=== PATIENT | female | born 1960 | race Two or more races ===

== ENCOUNTER 2024-10-18 15:47 | Emergency (ER) | payer OTHER ==
[~2024-10-18] VITALS: Ht 157.5 cm; Wt 79.8 kg
[2024-10-18] MEDS ORDERED: TOPROL XL50 M1 (16:44)
[2024-10-18] MEDS ORDERED: ZESTRIL2.5 MG (16:45)
[2024-10-18] MEDS ORDERED: KETOROLAC TROMETHAMINE 30 MG VIAL IM STA (17:34)
[2024-10-18] MEDS ORDERED: CETIRIZINE HCL 5 MG/5 ML ML PO STA (17:35)
[2024-10-18] MEDS ORDERED: CETIRIZINE HCL 5MG/5ML BLIST.PACK PO ONE (17:38)
[2024-10-18 18:01] LABS: BASO % 0.3 % (0.1-1.2); EOS # 0.06 (0.04-0.54); EOS % 0.7 % (0.7-7.0); HEMATOCRIT 42.1 % (34.1-44.9); HEMOGLOBIN 13.9 g/dL (11.2-15.7); LYMPH % 31.5 % (19.3-53.1); MEAN CORPUSCULAR HEMOGLOBIN 28.7 pg (25.6-32.2); MONO # 0.71 (0.24-0.82); NEUT # 5.27 (1.56-6.13); NEUT % 59.4 % (34.0-71.1); PLATELET COUNT 192 K/uL (163-369); RED BLOOD COUNT 4.85 M/uL (3.93-5.22); RED CELL DISTRIBUTION WIDTH 14.6 % (11.6-14.4)
[2024-10-18 18:16] LABS: INFLUENZA A AG NEGATIVE (NEGATIVE); INFLUENZA B AG NEGATIVE (NEGATIVE)
[2024-10-18 18:30] LABS: COVID-19 AG POSITIVE (NEGATIVE)
[2024-10-18 18:32] LABS: ALBUMIN 3.8 gm/dL (3.4-5.0); BILIRUBIN TOTAL 0.44 mg/dL (0.3-1.2); CALCIUM 9.3 mg/dL (8.5-10.1); CREATININE SERUM 0.81 mg/dL (0.55-1.02); GFR 71.41; GLOBULINA 3.9 G/DL (2.4-3.5); POTASSIUM 4.21 mEq/L (3.5-5.1); TOTAL PROTEIN 7.7 gm/dL (6.4-8.2)
[2024-10-18] MEDS ORDERED: PAXLOVID 300-11 EAC1 PO (19:20)
[2024-10-18] MEDS ORDERED: ZYRTEC10 MG PO (19:20)
[2024-10-18] MEDS ORDERED: PEPCID AC20 MG PO (19:20)
[2024-10-18] MEDS ORDERED: AMOX-CLAV 875-1 EAC1 PO (19:20)
== END 2024-10-18 19:51 | disposition home or self-care (01) ==
LOC: ER 15:47
PROVIDERS: General Practice
DX: U07.1 COVID-19 (principal); J32.9 Chronic sinusitis, unspecified; I10 Essential (primary) hypertension; E03.9 Hypothyroidism, unspecified
CPT/HCPCS: 36415; 96372; 99282; J1885